=== PATIENT | male | born 1950 | race Caucasian/White ===

== ENCOUNTER 2016-10-01 06:46 | Day surgery (SDC) | payer MEDICARE, BC ==
[~2016-10-01 06:46] MED LIST: RINGER'S SOLUTION,LACTATED 1,000 ML IV PRN
--- OUTSIDE RECORDS SUMMARY | 2016-10-01 06:50 | XMS REPORT | Continuity of Care Document ---
:1950 Demographics Phone Unavailable Preferred Language Unknown Marital Status Unknown Yazidism Affiliation Unknown Race Unknown Ethnic Group Unknown Author Organization [facility] ([facility]) Address [place] [address] Phone [phone] Care Team Providers Name Role Phone Unavailable Primary Care Provider Unavailable Source Comments This disclosure is being made pursuant to the Care Everywhere program, applicable federal and state laws, and may not contain all informaitonavailable regarding this patient.[facility] ([facility]) Active Allergies and Adverse Reactions Not on File Current Medications Not on file Active Problems Not on file Social History Tobacco Use Types Packs/Day Years Used Date Never Assessed Plan of Care Health Maintenance Due Date Last Done Comments HCV Screening 1950 Hepatitis B Vaccine (1 of 3 - Primary Series) 1950 Tdap Vaccine 1962 Lipid Disorder Screening 1969 Td Vaccine 1969 Colonoscopy 01/18/2001 Prostate Cancer Screening 2001 Zoster Vaccine 2011 Pneumococcal Vaccine (1 of 2 - PCV13) 01/20/2016 Influenza Vaccine: Seasonal (#1) 02/06/2016 Results from Last 3 Months Not on file
[2016-10-01] MEDS ORDERED: RINGER'S SOLUTION,LACTATED 1,000 ML IV PRN (08:26)
[2016-10-01 09:24] VITALS: BP 154/70
--- NOTE | 2016-10-01 17:10 | OR ---
Operative Report - Dictated Report Narrative: OPERATIVE REPORT DATE OF OPERATION: 10/01/2016 PREOPERATIVE DIAGNOSIS: No prior dedicated colon studies POSTOPERATIVE DIAGNOSIS: 3 mm rectal polyp (pathology pending). Diverticulosis OPERATION: Colonoscopy with hot biopsy forceps polypectomy in the rectum SURGEON: Rei Ervin MD ANESTHESIA: TRACEY Obregon CRNA INDICATIONS FOR PROCEDURE: The patient is a 66-year-old male referred for an initial colon screening by Dr. Hwang. He's had no previous dedicated colon studies. There is no family history of colon cancer. The patient is asymptomatic with exception of slightly irregular bowel habit. FINDINGS: 3 mm area of polypoid change in the rectum (pathology pending). Diverticulosis otherwise normal colonoscopy to the cecum NARRATIVE OF PROCEDURE: The patient was identified in the holding area, and prior to the administration of anesthetic, a multidisciplinary timeout was observed. With the patient in the left lateral position and after the administration of intravenous sedation, the perineum was inspected. There was no evidence of pilonidal disease or skin breakdown. The external appearance of the anus was normal. Sphincter tone was good. The flexible fiberoptic colonoscope was inserted into the rectum which was insufflated with air. The rectal mucosa and submucosal vascular pattern appeared normal, the prep was seen to be complete. There was a 3 mm area of possible polypoid change which was biopsied and entirely destroyed with electrocautery. The site was seen to be complete and hemostatic. The scope was advanced through the sigmoid colon, which contained several diverticular openings. The scope was advanced up the descending colon, and around the splenic flexure where the triangular haustral architecture of the transverse colon was seen. The scope was advanced across the transverse colon, around the hepatic flexure to the cecum, where the confluence of tenia and the ileocecal valve were identified. The mucosa at this level appeared normal. The scope was then slowly withdrawn in a circular fashion so that all aspects of colonic mucosa were inspected. The colon was normal in course and caliber. The haustral architecture appeared well preserved throughout with no evidence of external compression. The mucosa and submucosal vascular pattern appeared normal, specifically there was no gross evidence to suggest colitis or inflammatory bowel disease and no AV malformations were seen. There was mild diverticulosis suggested in the sigmoid colon. No polyps were encountered proximal to the rectum. The scope was gradually withdrawn to the level of the rectum. The previous polypectomy site was seen to be hemostatic. As much insufflated air as possible was removed. The scope was withdrawn from the patient and the procedure terminated. The patient tolerated the anesthetic and procedure well without complication and was transferred back to the ambulatory surgery area awake and in stable condition. The patient remained stable throughout a period of postoperative observation. He denied abdominal discomfort, was able to tolerate by mouth intake, and was up without assistance. I shared the operative findings with the patient and he was given copies of the photographs which appear in the medical record. He was discharged home with instructions not to engage in hazardous activity today, but may resume normal activity tomorrow, and advance diet as tolerated. He is to continue those medications as listed in the history and physical exam. I made arrangements to contact him with the biopsy reports and will make additional recommendations for treatment and follow-up based upon those results. Reviewed and electronically signed
== END 2016-10-01 06:47 | disposition home or self-care (01) ==
LOC: AMB 06:46
PROVIDERS: ATTEND Surgery
PROC: 0DBP8ZX Excision of Rectum, Via Natural or Artificial Opening Endoscopic, Diagnostic (ICD-10-PCS; principal; 2016-10-01 08:00)
DX: Z12.11 Encounter for screening for malignant neoplasm of colon (principal); K62.1 Rectal polyp; K57.30 Diverticulosis of large intestine without perforation or abscess without bleeding; E11.9 Type 2 diabetes mellitus without complications; I10 Essential (primary) hypertension; E78.5 Hyperlipidemia, unspecified; Z87.891 Personal history of nicotine dependence; Z68.30 Body mass index [BMI] 30.0-30.9, adult

== ENCOUNTER 2016-10-15 10:56 | Emergency (ER) | payer MEDICARE, BC ==
[2016-10-15] MEDS ORDERED: MORPHINE SULFATE 4 MG/ML SYRG IM ONE (11:20)
[2016-10-15] MEDS ORDERED: PROMETHAZINE HCL 25 MG/ML AMPUL IM ONE (11:20)
[2016-10-15] MEDS ORDERED: MORPHINE SULFATE 4 MG/ML SYRG ONE (11:21)
--- NOTE | 2016-10-15 11:21 | ERNOTE ---
Upper Extremity HPI - Narrative Date of Service: 10/15/16 - General Extremities Pain Location: elbow: right Time Seen by Provider: 10/15/16 11:16 Source: patient, RN notes reviewed Exam Limitations: no limitations - Immun/Allergies/Home Medications Immunizations: IMMUNIZATION HX Immunizations Up to Date Yes History of Influenza Vaccine Yes Hx Pneumococcal Vaccination Yes Allergies/Adverse Reactions: Allergies Allergy/AdvReac Type Severity Reaction Status Date / Time No Known Allergies Allergy Verified 10/15/16 11:11 Home Medications: HOME MEDICATIONS Atorvastatin Calcium [Lipitor] 20 mg PO DAILY 09/28/16 [Last Taken 09/30/16] Blood-Glucose Meter [Blood Glucose Monitoring] 1 each MC DAILY 09/28/16 [Last Taken 09/30/16] Doxycycline Hyclate [Vibratab] 100 mg PO BID 09/28/16 [Last Taken 09/30/16] Lactobacillus Combo No.10 [Probiotic] 1 each PO BID 09/28/16 [Last Taken ] Losartan Potassium [Cozaar] 100 mg PO DAILY 09/28/16 [Last Taken 09/30/16] Melatonin/Pyridoxine HCl (B6) [Melatonin 5 mg Tablet] 1 each PO HS 09/28/16 [ Last Taken 09/30/16] metFORMIN HCL [Glucophage] 500 mg PO BIDWM 09/28/16 [Last Taken 09/29/16] HYDROcodone/ACETAMINOPHEN [Charlotte 5-325] 1 - 2 tab PO Q6H PRN #24 tab 10/15/16 [ Last Taken Unknown] - History of Present Illness Narrative: 66 y/o male ambulatory to the ED for an injury to his right anterior elbow injury that occurred just [employer]. He was lifting a heavy roll of netting for a fence into the back of his truck at the time when he felt a "pop" in the volar elbow. He became diaphoretic and nauseous at the time. He reports that his pain is not bad with the arm held in extension, but becomes severe with movement. He is a amezquita and is right handed. Occurred: just prior to arrival Location of Incident: home Method of Injury: Reports: other - lifting Modifying Factors - (Improves): Reports: rest Modifying Factors - (Worsens): Reports: movement Associated Symptoms: Reports: loss of power (rt arm). Denies: tingling, weakness, numbness distally Other Injuries: Reports: none Prior Treament: Denies: similar symptoms before Review of Systems - Review of Systems Constitutional: Present: fatigue. Absent: recent illness EYE: Present: no symptoms reported ENT: Present: no symptoms reported Respiratory: Absent: shortness of breath Cardiology: Absent: chest pain, palpitations, syncope Gastrointestinal/Abdominal: Present: nausea. Absent: vomiting Genitourinary: Present: no symptoms reported Musculoskeletal: Present: muscle pain, joint pain. Absent: joint swelling Skin: Absent: lesions, lumps, change in color Neurological: Absent: weakness, numbness, tingling Endocrine: Present: no symptoms reported Hematologic/Lymphatic: Present: no symptoms reported Psych: Present: no symptoms reported - Patient's Past Medical History Patient History - Medical: Chronic Pain, Diabetes Type 2 Patient History - Cardiac/Respiratory: Hypertension, Hyperlipidemia, Pneumonia Patient History - Cancer: Skin Patient History - Surgical Procedures: Orthopedic Patient History - Other: None - Family History Mother Family History - Medical: No pertinent hx Family History - Cardiac/Respiratory: Hypertension Family History - Cancer: No pertinent family hx Father Family History - Medical: Diabetes Type 2, Renal Disease Family History - Cardiac/Respiratory: History Unknown, Coronary Heart Disease, Home O2 Use Family History - Cancer: No pertinent family hx Brother Family History - Medical: Diabetes Type 2 Family History - Cardiac/Respiratory: No pertinent hx Family History - Cancer: No pertinent family hx Sister Family History - Medical: No pertinent hx Family History - Cardiac/Respiratory: No pertinent hx Family History - Cancer: No pertinent family hx - Social History Living Situations: home Abuse History: No History of abuse Psych History: Hx of Anxiety Smoking Status: Former smoker Alcohol Use: rarely Drug Use: none - Immunizations Immunizations Up to Date: Yes Hx Pneumococcal Vaccination: Yes History of Influenza Vaccine: Yes Physical Exam - Physical Exam General Appearance: Present: wd/wn, alert, mild distress Respiratory: Present: no respiratory distress, normal breath sounds, no accessory muscle use, lungs clear Cardiovascular/Chest: Present: regular rate, rhythm, no murmur, normal peripheral pulses Peripheral Pulses: N=norm/S=strong/W=weak/B=bound/A=absent: Radial (R): Normal, Radial (L): Normal Extremity Exam: Present: no edema, decreased range of motion - right elbow, other - diffuse tenderness right elbow, volar surface. Absent: bony tenderness , joint swelling Neurological Exam: Present: alert, oriented, normal mood/affect, no motor/ sensory deficits Skin Exam: Present: normal color, warm/dry ED Progress - Vital Signs Patient's Vital Signs:: I have reviewed the patient's vital signs. Vital Signs: Vital Signs 10/15/16 11:02 Temperature 36.3 C L Pulse Rate 63 Respiratory 15 Rate Blood Pressure 133/60 O2 Sat by Pulse 90 Oximetry - X-Ray X-Ray #1 X-Ray: elbow Interpretation: Reviewed by me X-ray Comments: Technique: AP, oblique, and lateral views of the elbow were obtained. Findings: The joint spaces demonstrate mild narrowing without spurring. The osseous structures are intact and I do not see evidence for fracture or bony abnormality. There is calcification involving both the flexor and extensor tendon insertions into the distal humerus. The fat pads are normal. The suggestion of the edema anterior to the joint space. IMPRESSION: 1. NO ACUTE OSSEOUS ABNORMALITY. 2. CALCIFICATION INVOLVING THE FLEXOR OR EXTENSOR TENDONS INSERTING INTO THE DISTAL HUMERUS. THIS WOULD REFLECT A CHRONIC FINDING. 3. SUGGESTION OF EDEMA ANTERIOR TO THE ELBOW JOINT. Electronically signed by West Landeros M.D.. - Progress/Reassessment Chief Complaint: Upper Extremity Injury/Problem Progress:: Improved Plan - Plan Plan: Contacted RUTH Potter in orthopedics regarding xray results. Patient will be seen there on 10/17 for f/u. To be in a sling and ice/rest extremity in the meantime. Departure Clinical Impression: Biceps rupture, distal Qualifiers: Encounter type: initial encounter Laterality: right Qualified Code(s): S46.211A - Strain of muscle, fascia and tendon of other parts of biceps, right arm, initial encounter - Departure Disposition: Home Follow Up Needed Condition: Stable Instructions: Biceps Tendon Disruption (Distal) With Rehab[facility] Additional Instructions: Wear sling for support Ice 20 minutes on and at least 20 minutes off in between Pain medication may cause drowsiness, dizziness, nausea and fatigue OK to take Tylenol in place of prescription pain medication but not with it See orthopedics as scheduled Referrals: Praful Couch, PAC [[facility]] - Prescriptions: HYDROcodone/ACETAMINOPHEN [[place] 5-325] 1 - 2 tab PO Q6H PRN #24 tab PRN Reason: Pain
[2016-10-15] MEDS ORDERED: PROMETHAZINE HCL 25 MG/ML AMPUL ONE (11:22)
--- OUTSIDE RECORDS SUMMARY | 2016-10-15 11:37 | XMS REPORT | Continuity of Care Document ---
:1950 Demographics Phone Unavailable Preferred Language Unknown Marital Status Unknown Quaker Affiliation Unknown Race Unknown Ethnic Group Unknown Author Organization [facility] ([facility]) Address [place] [address] Phone [phone] Care Team Providers Name Role Phone Unavailable Primary Care Provider Unavailable Source Comments This disclosure is being made pursuant to the Care Everywhere program, applicable federal and state laws, and may not contain all informaitonavailable regarding this patient.[facility] ([facility]) Active Allergies and Adverse Reactions Not on [...]
[2016-10-15 13:19] VITALS: BP 160/70
== END 2016-10-15 13:20 | disposition home or self-care (01) ==
LOC: ER 10:56
DX: S46.211A Strain of muscle, fascia and tendon of other parts of biceps, right arm, initial encounter (principal); Z85.828 Personal history of other malignant neoplasm of skin; Z87.891 Personal history of nicotine dependence; E11.9 Type 2 diabetes mellitus without complications; I10 Essential (primary) hypertension; E78.5 Hyperlipidemia, unspecified; X50.0XXA Overexertion from strenuous movement or load, initial encounter; Y92.812 Truck as the place of occurrence of the external cause

== ENCOUNTER 2016-10-23 08:29 | Day surgery (SDC) | payer MEDICARE, BC ==
[~2016-10-23 08:29] MED LIST changes: +HYDROmorphone HCL 2 MG/ML VIAL IV PRN; +ceFAZolin SODIUM 1 GM VIAL IV PRN; +oxyCODONE HCL/ACETAMINOPHEN 1 TAB TABLET PO PRN
--- OUTSIDE RECORDS SUMMARY | 2016-10-23 08:33 | XMS REPORT | Continuity of Care Document ---
:1950 Demographics Phone Unavailable Preferred Language Unknown Marital Status Unknown Tenriism Affiliation Unknown Race Unknown Ethnic Group Unknown Author Organization [facility] ([facility]) Address [place] [address] Phone [phone] Care Team Providers Name Role Phone Unavailable Primary Care Provider Unavailable Source Comments This disclosure is being made pursuant to the Care Everywhere program, applicable federal and state laws, and may not contain all informaitonavailable regarding this patient.[facility] ([facility]) Active Allergies and Adverse Reactions Not [...]
[2016-10-23] MEDS ORDERED: RINGER'S SOLUTION,LACTATED 1,000 ML IV ONE ×2 (08:40→10:00)
[2016-10-23] MEDS ORDERED: BUPIVACAINE HCL/EPINEPHRINE 50 ML VIAL IJ ONE ×2 (09:30)
--- NOTE | 2016-10-23 11:27 | OR ---
Operative Report - Dictated Report Narrative: Date: 10/23/2016 Physician: Jared Peterson M.D. Ostomy Nurse: Praful Couch PA-C Preoperative diagnosis: Right distal biceps tendon rupture Postoperative diagnosis: Right distal biceps tendon rupture Procedure: Right distal biceps tendon repair Anesthesia: Gen. with local Complications: None Estimated blood loss: Minimal Tourniquet time: 61 min @ 250 mmHg Specimens: None Retained implants: Couch and nephew Endobutton Drains: None Indications: Mr. 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 He was seen in my clinic and an MRI was obtained which confirmed the diagnosis. After discussion of treatment options as well as the risks and benefits of surgery including but not limited to infection, bleeding, neurovascular injury, elbow stiffness, loss of elbow flexion strength, loss of supination strength, and re- rupture, he wished to proceed with surgery. He presents today for repair of his right distal biceps tendon. Procedure: After marking the correct extremity in the preoperative holding area, a timeout was performed in the operating room. IV antibiotics consisting of 2 g of Ancef were administered prior to the procedure. Gen. anesthesia was induced by the anesthesia provider without complication. Patient was positioned supine with an arm table and all bony prominences were well-padded. The patient's right upper extremity was then prepped and draped in the usual sterile fashion. A sterile tourniquet was placed around the upper arm. The arm was exsanguinated using an Esmarch bandage and the tourniquet was inflated to 250 mmHg. We then turned our attention to the antecubital fossa. A longitudinal incision was made along the medial border of the brachioradialis curving proximally along the antecubital fossa skin fold. A combination of blunt dissection and electrocautery was used to dissect down through the subcutaneous tissue. The lateral antebrachial cutaneous nerve was identified and carefully retracted laterally. We explored the wound proximally and identified the ruptured biceps tendon which was easily retrieved out of the wound and held with an Poonam clamp. The tendon was then debrided of all scar tissue. A #2 FiberWire was then sewn through the distal biceps tendon in a Krakw fashion with two free suture limbs. The distal tendon was then sized at 8 mm. The suture was passed through the central holes of a Couch and Nephwe Endobutton and the knot was tied on the leaving approximately 2 mm between the Endobutton and the tendon stump. The biceps tendon was then wrapped with a moist Kerlix bandage and we turned our attention back to the wound. Combination of blunt and sharp dissection was carried out down to the level of the radial tuberosity being careful to protect the neurovascular structures. The arm was held in maximal supination and the radial tuberosity was exposed. A Beath pin was then drilled through the radial tuberosity and out through the dorsal aspect of the forearm. The position of our Beath pin was confirmed on fluoroscopy and confirmed to be in the center of the radial tuberosity. Next the Endobutton drill bit was used to drill through the radius for the Endobutton. A 8 mm acorn reamer was then advanced down over our Beath pin and used to ream the near cortex of the radial tuberosity. The passing sutures were then passed through the eyelet of the Beath pin and pulled through our drill tunnel. The Endobutton was then pulled through the tunnel and flipped using the trailing suture limb. We confirmed that the Endobutton had been passed through our tunnel and was appropriately flipped via fluoroscopy. We took the elbow through a gentle range of motion to confirm good seating of the tendon in the tunnel. At this point we were happy with our repair and the wound was copiously irrigated with normal saline. The skin edges were anesthetized with 20 mL of 0.5% marcaine with epinephrine. The wound was then closed in layered fashion using 4-0 Vicryl in an interrupted deep dermal fashion followed by 4-0 nylon to close the skin. Dressings consisting of Xeroform, 4 x 4, soft roll were applied followed by a long-arm posterior splint with the elbow at 90. All sponge, needle, blade , and instrument counts were correct prior to closing the wounds. The patient was awoken and transferred to the post-anesthesia care unit in stable condition.
[2016-10-23 12:46] VITALS: BP 125/60
== END 2016-10-23 08:30 | disposition home or self-care (01) ==
LOC: AMB 08:29
PROVIDERS: ATTEND Orthopaedic Surgery
PROC: 0LM30ZZ Reattachment of Right Upper Arm Tendon, Open Approach (ICD-10-PCS; principal; 2016-10-23 10:30)
DX: S46.211A Strain of muscle, fascia and tendon of other parts of biceps, right arm, initial encounter (principal); E11.9 Type 2 diabetes mellitus without complications; I10 Essential (primary) hypertension; E78.5 Hyperlipidemia, unspecified; Z87.891 Personal history of nicotine dependence; Z68.30 Body mass index [BMI] 30.0-30.9, adult; X50.0XXA Overexertion from strenuous movement or load, initial encounter

== ENCOUNTER 2017-02-19 10:16 | Emergency (ER) | payer MEDICARE, BC ==
[2017-02-19] MEDS ORDERED: KETOROLAC TROMETHAMINE 60 MG/2 ML VIAL IM ONE ×2 (10:53→10:58)
--- NOTE | 2017-02-19 10:57 | ERNOTE ---
Lower Extremity HPI - General Lower Extremities Pain: leg: right Time Seen by Provider: 02/19/17 10:38 Source: patient Exam Limitations: no limitations - Immun/Allergies/Home Medications Immunizations: IMMUNIZATION HX Immunizations Up to Date Yes History of Influenza Vaccine Yes Hx Pneumococcal Vaccination Yes Allergies/Adverse Reactions: Allergies Allergy/AdvReac Type Severity Reaction Status Date / Time No Known Allergies Allergy Verified 02/19/17 10:32 Home Medications: HOME MEDICATIONS Atorvastatin Calcium [Lipitor] 20 mg PO DAILY 09/28/16 [Last Taken 09/30/16] Blood-Glucose Meter [Blood Glucose Monitoring] 1 each MC DAILY 09/28/16 [Last Taken 09/30/16] Losartan Potassium [Cozaar] 100 mg PO DAILY 09/28/16 [Last Taken 09/30/16] Melatonin/Pyridoxine HCl (B6) [Melatonin 5 mg Tablet] 1 each PO HS 09/28/16 [ Last Taken 09/30/16] metFORMIN HCL [Glucophage] 500 mg PO BIDWM 09/28/16 [Last Taken 09/29/16] Cyclobenzaprine HCl [Flexeril] 10 mg PO TID PRN #30 tab 02/19/17 [Last Taken Unknown] Naproxen [Naprosyn] 500 mg PO BID #60 tablet 02/19/17 [Last Taken Unknown] traMADol HCL [Ultram] 50 mg PO QID PRN #12 tablet 02/19/17 [Last Taken Unknown] - History of Present Illness Narrative: Patient presents with right calf pain that extends up the leg to behind the knee area. Onset of symptoms was approximately one to 2 days ago he rates the pain as at least moderate in severity. Occurred: yesterday Location of Incident: home Method of Injury: Reports: no apparent injury Loss of Consciousness: Reports: no loss of consciousness Associated Symptoms: Reports: other injuries - painful weightbearing Other Injuries: Reports: none Prior Treament: Reports: recently seen Review of Systems - Review of Systems Constitutional: Present: See HPI EYE: Present: no symptoms reported ENT: Present: no symptoms reported Respiratory: Present: no symptoms reported Cardiology: Present: no symptoms reported Gastrointestinal/Abdominal: Present: no symptoms reported Genitourinary: Present: no symptoms reported Musculoskeletal: Present: See HPI Skin: Present: no symptoms reported Neurological: Present: no symptoms reported Endocrine: Present: no symptoms reported Hematologic/Lymphatic: Present: no symptoms reported Psych: Present: no symptoms reported - Patient's Past Medical History Patient History - Medical: Chronic Pain, Diabetes Type 2, Other Patient History - Cardiac/Respiratory: Hypertension, Hyperlipidemia, Pneumonia Patient History - Cancer: Skin Patient History - Surgical Procedures: Colonoscopy, Orthopedic Patient History - Other: None - Family History Mother Family History - Medical: No pertinent hx Family History - Cardiac/Respiratory: Hypertension Family History - Cancer: No pertinent family hx Father Family History - Medical: Diabetes Type 2, Renal Disease Family History - Cardiac/Respiratory: History Unknown, Coronary Heart Disease, Home O2 Use Family History - Cancer: No pertinent family hx Brother Family History - Medical: Diabetes Type 2 Family History - Cardiac/Respiratory: No pertinent hx Family History - Cancer: No pertinent family hx Sister Family History - Medical: No pertinent hx Family History - Cardiac/Respiratory: No pertinent hx Family History - Cancer: No pertinent family hx - Social History Living Situations: home Abuse History: No History of abuse Psych History: Hx of Anxiety Smoking Status: Never smoker Do you dip or chew tobacco: No Alcohol Use: rarely Drug Use: none - Immunizations Immunizations Up to Date: Yes Hx Pneumococcal Vaccination: Yes History of Influenza Vaccine: Yes Physical Exam - Physical Exam General Appearance: Present: wd/wn, alert, moderate distress Eye Exam: Normal inspection: bilateral, PERRL: bilateral Ears, Nose, Throat: Present: normal ENT inspection, H, normal pharynx Neck: Present: normal inspection, nontender Respiratory: Present: no respiratory distress, normal breath sounds, no accessory muscle use, chest nontender, lungs clear Cardiovascular/Chest: Present: regular rate, rhythm, no murmur, normal peripheral pulses Gastrointestinal/Abdominal: Present: normal bowel sounds, nontender, nondistended, soft, no organomegaly Rectal Exam: Present: deferred Back Exam: Present: normal inspection, normal range of motion Extremity Exam: Present: normal range of motion, no edema, calf tenderness Neurological Exam: Present: alert, oriented, normal mood/affect Skin Exam: Present: normal color, warm/dry Lymphatic Exam: Present: no adenopathy ED Progress - Vital Signs Vital Signs: Vital Signs 02/19/17 10:25 Temperature 36.5 C Pulse Rate 63 Respiratory 15 Rate Blood Pressure 145/52 O2 Sat by Pulse 97 Oximetry - CT/Ultrasound CT/Ultrasound Narrative: US reviewed - Progress/Reassessment Chief Complaint: Lower Extremity Pain/ Injury Plan - Plan Plan: I suspect a muscle strain has occurred and patient be started on NSAIDs and a muscle relaxer and he will follow-up with his family physician as needed Departure Clinical Impression: Muscle strain - Departure Disposition: Home self-care Condition: Good Instructions: Muscle Strain, [id number] Referrals: Emiliana Hwang MD [Primary Care Provider] - Prescriptions: Cyclobenzaprine HCl [Flexeril] 10 mg PO TID PRN #30 tab PRN Reason: MUSCLE SPASMS Naproxen [Naprosyn] 500 mg PO BID #60 tablet traMADol HCL [Ultram] 50 mg PO QID PRN #12 tablet PRN Reason: Moderate Pain
[2017-02-19 12:50] VITALS: BP 138/55
== END 2017-02-19 13:30 | disposition home or self-care (01) ==
LOC: ER 10:16
DX: S86.911A Strain of unspecified muscle(s) and tendon(s) at lower leg level, right leg, initial encounter (principal); G89.29 Other chronic pain; E11.9 Type 2 diabetes mellitus without complications; I10 Essential (primary) hypertension; E78.5 Hyperlipidemia, unspecified; Z85.828 Personal history of other malignant neoplasm of skin